=== PATIENT | male | born 1945 | race Caucasian/White ===

== ENCOUNTER 2019-08-01 13:11 | Inpatient (IN) | payer BC, MEDICARE ==
[2019-08-01] VITALS (281 sets, daily range): BP systolic 111–184; BP diastolic 63–106; PULSE 51–64; TEMP 97.7–98.1; O2SAT 91–99
[~2019-08-01] VITALS: Ht 180.3 cm; Wt 105.5 kg
[2019-08-01 13:35] LABS: BASO # 0.1 (0.0-0.2); BASO % 0.6 % (0.0-2.0); EOS # 0.3 (0.0-0.7); EOS % 2.6 % (0-4.0); GRAN # 6.6 (1.4-6.5); GRAN % 66.1 % (42.2-75.2); HEMATOCRIT 46.1 % (42.0-52.0); HEMOGLOBIN 14.8 g/dl (13.5-18.0); LYMPH # 2.2 (1.2-3.4); LYMPH % 22.3 % (20.0-51.0); MEAN CELL VOLUME 95 fl (80.0-100.0); MEAN CORPUSCULAR HEMOGLOBIN 31 pg (27.0-31.0); MEAN CORPUSCULAR HGB CONC 32 g/dl (33.0-37.0); MEAN PLATELET VOLUME 11.9 fl (7.4-10.4); MONO # 0.8 (0.1-0.6); MONO % 7.6 % (1.7-9.3); PLATELET COUNT 161 K/mm3 (130-400); RED BLOOD COUNT 4.86 M/mm3 (4.20-5.60)
[2019-08-01 13:37] LABS: ALBUMIN 4.2 gm/dL (3.5-5.0); BILIRUBIN,TOTAL 0.8 mg/dL (0.0-1.0); CALCIUM 9.5 mg/dL (8.4-10.2); CREATININE, serum 1.04 (0.66-1.25); POTASSIUM 4.7 mmol/L (3.4-5.0); TOTAL PROTEIN 7.2 gm/dL (6.4-8.2)
[2019-08-01 13:39] LABS: INR 1.4 (0.8-3.0); PROTHROMBIN TIME 15.5 SECONDS (9.7-12.8)
[2019-08-01 13:48] LABS: TROPONIN-I 0.019 ng/mL (0.000-0.035)
[2019-08-01 13:55] LABS: D-DIMER < 200.00 ng/mLDDu (200-230)
[2019-08-01] MEDS ORDERED: COREG 25MG25 MG/TAB PO (14:18)
[2019-08-01] MEDS ORDERED: XARELTO20 MG PO (14:20)
[2019-08-01] MEDS ORDERED: LASIX 20MG TABL20 MG PO (14:20)
[2019-08-01] MEDS ORDERED: LITHIUM 30300 MG/CAP PO ×2 (14:21)
[2019-08-01] MEDS ORDERED: LIPITOR 40MG TA40 MG PO (14:22)
[2019-08-01] MEDS ORDERED: COZAAR100 MG PO (14:22)
[2019-08-01] MEDS ORDERED: EPA FISH OIL1 SGL PO (14:23)
--- NOTE | 2019-08-01 14:46 | NUR ---
SEE MERGE DOCUMENTATION FOR MEDICATION ADMINISTRATION TIMES AND INTRA/POST PROCEDURE SEDATION ASSESSMENTS. RIGHT HAND BARBEAU TEST POSITIVE.
--- NOTE | 2019-08-01 19:05 | NUR ---
Recieved bedside report from TYREE Franco. Looked over Amio gtt and cath site.
--- NOTE | 2019-08-01 19:05 | NUR ---
Report given to Gabe CLEMENTS and care transfered.
--- NOTE | 2019-08-01 20:15 | NUR ---
TRIED RELEASING 3ML OF AIR OUT AND SITE BLED A SCANT AMOUNT, SO ALL 3ML OF AIR WAS INFLATED BACK INTO BAND.
[2019-08-02] VITALS (416 sets, daily range): BP systolic 137–1577; BP diastolic 72–99; PULSE 51–62; TEMP 97.8–98.3; O2SAT 84–99
--- NOTE | 2019-08-02 02:10 | NUR ---
REMOVED THE REMAINING AIR IN TR BAND WHICH WAS 3MLS. SITE IS CLEAN AND NO ACTIVE BLEEDING OR HEMATOMA. BANDAID PLACED OVER SITE
[2019-08-02 07:15] LABS: CHOLESTEROL RISK RATIO 4.5; CREATININE, serum 0.8 (0.66-1.25); MAGNESIUM 2.2 mg/dL (1.6-2.3); POTASSIUM 3.9 mmol/L (3.4-5.0)
[2019-08-02 07:34] LABS: BASO % 0.5 % (0.0-2.0); EOS # 0.3 (0.0-0.7); GRAN # 5.8 (1.4-6.5); GRAN % 69.9 % (42.2-75.2); HEMATOCRIT 42.6 % (42.0-52.0); HEMOGLOBIN 13.8 g/dl (13.5-18.0); LYMPH # 1.4 (1.2-3.4); LYMPH % 16.4 % (20.0-51.0); MEAN CELL VOLUME 95 fl (80.0-100.0); MEAN CORPUSCULAR HEMOGLOBIN 31 pg (27.0-31.0); MEAN CORPUSCULAR HGB CONC 32 g/dl (33.0-37.0); MEAN PLATELET VOLUME 11.8 fl (7.4-10.4); MONO # 0.8 (0.1-0.6); MONO % 9.4 % (1.7-9.3); PLATELET COUNT 151 K/mm3 (130-400); REDCELL DISTRIBUTION WIDTH-CV 14.1 % (11.5-14.5)
--- NOTE | 2019-08-02 09:49 | NUR ---
JUSTICE met with the patient to discuss discharge plan. The patient lives in [place] with his , Brenda (ph#[phone]). He reports independence with ADLs and does not have any DME. The patient's PCP is Dr. Radha Barclay and he receives his medications at [facility] in [place]. He reports no difficulties obtaining his meds. The patient was down as self pay. The patient provided JUSTICE with a copy of his insurance cards. The patient had [employer] as primary and Medicare as seconday insurance. JUSTICE notified Financial Counselor, Dallin, and provided him with the patient's ID numbers for both insurances. The patient plans to return home with his upon discharge. No additional needs at this time.
--- NOTE | 2019-08-02 17:00 | NUR ---
Care taken over at this time from TYREE Milligan. Patient is sitting up in chair with no complaints or concerns. Vital signs stable. Full assessment completed and no change from previous assessment. Call light and personal items within reach.
--- NOTE | 2019-08-02 19:00 | NUR ---
Bedside shift report given to TYREE Toure and care handed over at this time. Patient has no complaints or concerns.
[2019-08-03] VITALS: BP 172/94; PULSE 55; TEMP 97.9
[2019-08-03 04:00] VITALS: BP 167/97; PULSE 58; TEMP 97.8
--- NOTE | 2019-08-03 07:00 | NUR ---
Report given to TYREE Vilchis.
[2019-08-03 07:03] LABS: CALCIUM 9.4 mg/dL (8.4-10.2); CREATININE, serum 0.74 (0.66-1.25); POTASSIUM 3.9 mmol/L (3.4-5.0)
--- NOTE | 2019-08-03 07:50 | NUR ---
[facility] called to request procedure time - [facility] staff stated pt is not on the schedule for today - earliest opening (per [facility] staff is 1500) [id number] - MD Yuly called and notified of aforementioned - does plan on performing left heart catheteriztion with planned intervention and that MD is on the way to the hospital now. Pt updated
[2019-08-03 08:00] VITALS: BP 169/97; PULSE 57; TEMP 98
--- NOTE | 2019-08-03 08:53 | NUR ---
Left Heart Catheterization cancelled by MD Yuly Pt out of bed to chair eating breakfast MD Alejandro notified of cancelaltion and OK from cardiology to discharge pt with medication alterations MD Yuly reviewed new medications with pt in detail, particularly anticoagulation.
[2019-08-03] MEDS ORDERED: PACERONE400 MG PO (10:01)
[2019-08-03] MEDS ORDERED: BRILINTA90 MG PO (10:01)
[2019-08-03] MEDS ORDERED: PACERONE200 MG PO (10:02)
[2019-08-03] MEDS ORDERED: ASPIRIN E.C. 8181 MG PO (10:03)
[2019-08-03] MEDS ORDERED: LIPITOR 80MG80 MG PO (10:03)
[2019-08-03] MEDS ORDERED: NORVASC 5MG5 MG/TAB PO (10:03)
[2019-08-03] MEDS ORDERED: NITROSTAT0.4 MG/TAB SL (10:03)
--- NOTE | 2019-08-03 10:35 | NUR ---
First visit from the screen printing cloth spreader. No needs right now.
== END 2019-08-03 13:30 | disposition home or self-care (01) | DRG 246 ==
LOC: COL.ER 13:11 → ICU 16:18
PROVIDERS: Family Medicine; ADMIT Internal Medicine
PROC: 027034Z Dilation of Coronary Artery, One Artery with Drug-eluting Intraluminal Device, Percutaneous Approach (ICD-10-PCS; principal; 2019-08-01)
PROC: 4A023N7 Measurement of Cardiac Sampling and Pressure, Left Heart, Percutaneous Approach (ICD-10-PCS; 2019-08-01)
PROC: B2101ZZ Fluoroscopy of Single Coronary Artery using Low Osmolar Contrast (ICD-10-PCS; 2019-08-01)
DX: I47.2 Ventricular tachycardia (principal); I21.4 Non-ST elevation (NSTEMI) myocardial infarction; I10 Essential (primary) hypertension; E78.5 Hyperlipidemia, unspecified; I25.10 Atherosclerotic heart disease of native coronary artery without angina pectoris; F17.210 Nicotine dependence, cigarettes, uncomplicated; E66.9 Obesity, unspecified; Z95.818 Presence of other cardiac implants and grafts
CPT/HCPCS: 99223-AI; 99233-AI; 99239; C9600; J0282; J0360; J1644; J2250; J3475; J7060; Q9967